=== PATIENT | female | born 1975 | race Caucasian/White ===

== ENCOUNTER 2017-11-02 13:32 | Emergency (ER) | payer SELFPAY ==
[~2017-11-02] VITALS: Ht 154.9 cm; Wt 42.0 kg
[2017-11-02] MEDS ORDERED: ZIPRASIDONE 20 MG INJ IM ONE ×2 (13:46→14:00)
[2017-11-02 13:58] LABS: BASOPHILS # (AUTO) 0.01 x10^3/uL (0-0.1); BASOPHILS % (AUTO) 0 % (0-1); EOSINOPHILS # (AUTO) 0.05 x10^3/uL (0-0.4); EOSINOPHILS % (AUTO) 0 % (1-7); LYMPHOCYTES # (AUTO) 1.21 x10^3/uL (1-3.4); LYMPHOCYTES % (AUTO) 8 % (22-44); MD NO; MEAN CORPUSCULAR HEMOGLOBIN 30.8 pg (27.0-34.8); MEAN CORPUSCULAR HGB CONC 33.9 g/dL (32.4-35.8); MEAN CORPUSCULAR VOLUME 90.9 fL (80-100); MEAN PLATELET VOLUME 6.4 fL (7.4-10.4); MONOCYTES % (AUTO) 6 % (2-9); NEUTROPHILS # (AUTO) 13.17 x10^3/uL (1.8-6.8); NEUTROPHILS % (AUTO) 86 % (42-75); PLATELET COUNT 517 x10^3/uL (130-400); RED BLOOD COUNT 4.37 x10^6/uL (3.82-5.3)
[2017-11-02] MEDS ORDERED: PLEASE ENTER HEIGHT AND WEIGHT MC SCH (14:00)
[2017-11-02] MEDS ORDERED: CEFTRIAXONE 1,000 MG IM ONE (14:00)
[2017-11-02] MEDS ORDERED: CEFTRIAXONE 1,000 MG ONE (14:44)
[2017-11-02 19:06] VITALS: BP 99/70
[2017-11-02] MEDS ORDERED: BACITRACIN ZINC OINT 500U/GM, 0.9 GM ONE (19:42)
== END 2017-11-02 20:23 | disposition home or self-care (01) ==
LOC: ED 19:36
DX: L03.115 Cellulitis of right lower limb (principal); F15.129 Other stimulant abuse with intoxication, unspecified; F17.210 Nicotine dependence, cigarettes, uncomplicated; Z72.9 Problem related to lifestyle, unspecified; Z60.9 Problem related to social environment, unspecified
CPT/HCPCS: 36415; 73590; 82962; 85025; 96372; 99285; J0696; J3486

== ENCOUNTER 2019-01-31 17:10 | Emergency (ER) | payer SELFPAY ==
[~2019-01-31] VITALS: Ht 157.5 cm; Wt 45.5 kg
[2019-01-31 17:14] VITALS: BP 152/110
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
--- NOTE | 2019-01-31 18:34 | NUR ---
LATE ENTRY FOR 1800 PT RESTING ON GURNEY. PT HAS BEEN GIVEN WATER. PT REFUSES BLANKET. PT STILL AGITATED AND NOT VERY COMPLIANT. PT STATES "JUST TAKE ME TO [facility]." PT EDUCATED REGARDING POC AT THIS TIME. ALL SAFETY MEASURES OBTAINED. NO OTHER REQUESTS AT THIS TIME. PT REFUSING VITAL SIGNS. PT PULSE OX WAS FOUND ON FLOOR. WILL CONTINUE TO MONITOR.
[2019-01-31 18:35] LABS: BASOPHILS # (AUTO) 0.04 x10^3/uL (0-0.1); BASOPHILS % (AUTO) 0 % (0-1); EOSINOPHILS # (AUTO) 0.02 x10^3/uL (0-0.4); EOSINOPHILS % (AUTO) 0 % (1-7); LYMPHOCYTES # (AUTO) 0.64 x10^3/uL (1-3.4); LYMPHOCYTES % (AUTO) 4 % (22-44); MD NO; MEAN CORPUSCULAR HEMOGLOBIN 31.8 pg (27.0-34.8); MEAN CORPUSCULAR HGB CONC 33.3 g/dL (32.4-35.8); MEAN CORPUSCULAR VOLUME 95.5 fL (80-100); MEAN PLATELET VOLUME 6.9 fL (7.4-10.4); MONOCYTES # (AUTO) 0.72 x10^3/uL (0.2-0.8); MONOCYTES % (AUTO) 4 % (2-9); NEUTROPHILS # (AUTO) 15.93 x10^3/uL (1.8-6.8); NEUTROPHILS % (AUTO) 92 % (42-75); PLATELET COUNT 536 x10^3/uL (130-400); RED CELL DISTRIBUTION WIDTH 14.9 % (9.6-15.2)
--- NOTE | 2019-01-31 18:37 | NUR ---
PT STILL REFUSES VS. PT RESTING ON GURNEY. PT STATES "DO YOU EVEN KNOW WHAT YOU ARE DOING!? JEEZ!!" NO ACUTE DISTRESS NOTED. ALL SAFETY MEASURES OBTAINED. PT OFFERED DIET TRAY, PT REFUSED.
[2019-01-31 18:48] LABS: ALANINE AMINOTRANSFERASE 22 U/L (12-78); ALBUMIN 4.1 g/dL (3.4-5.0); ANION GAP 13 mmol/L (5-15); CALCIUM 10.4 mg/dL (8.5-10.1); CHLORIDE 105 mmol/L (98-107); CREATININE 1.61 mg/dL (0.55-1.02)
[2019-01-31 18:50] LABS: ALKALINE PHOSPHATASE 125 U/L (45-117); BILIRUBIN,TOTAL 0.8 mg/dL (0.2-1.0); TOTAL PROTEIN 9.4 g/dL (6.4-8.2)
--- NOTE | 2019-01-31 18:59 | NUR ---
BEDSIDE REPORT TO AMANUEL TRIVEDI.
--- NOTE | 2019-01-31 19:01 | NUR ---
Assumed care for patient. Report taken from AMANUEL Argueta.
[2019-01-31] MEDS ORDERED: CEFTRIAXONE 1,000 MG ONE (19:57)
[2019-01-31] MEDS ORDERED: CEFTRIAXONE 1,000 MG IM ONE (20:00)
--- NOTE | 2019-01-31 20:36 | NUR ---
IM Rocephin administered. Restraints released at 2024 by security. Pt calm and cooperative.
--- NOTE | 2019-01-31 20:55 | NUR ---
PT signed paperwork and educated on aftercare wound care instructions. Pt given cab voucher.
== END 2019-01-31 20:59 | disposition home or self-care (01) ==
LOC: ED 20:35
DX: L03.115 Cellulitis of right lower limb (principal); F15.20 Other stimulant dependence, uncomplicated; F17.200 Nicotine dependence, unspecified, uncomplicated
CPT/HCPCS: 36415; 73610; 80053; 80307; 83605; 85025; 87040; 96372; 99284; J0696

== ENCOUNTER 2019-09-24 10:50 | Inpatient (IN) | payer MEDICARE ==
[~2019-09-24] VITALS: Ht 154.9 cm; Wt 38.7 kg
[~2019-09-24 10:50] MED LIST: CEFO2PIG IV; ENOX40SY4 SQ; HYDR-3237 PO; LORA-446 PO; MULT1TAB60 PO; NICO-486 TD; SENN-193 PO
--- NOTE | 2019-09-24 11:54 | NUR ---
SPLINT TO R LEG/FOOT REMOVED. ERP IN TO ASSESS LEG. PT STATES SEVERAL TIMES SHE MISSED FOLLOW UP APPOINTMENT WITH [facility] BUT UNABLE TO GIVE EXACT DATES. PT CONTINUES TO CONVERSE BUT UNABLE TO ANSWER MOST QUESTIONS FULLY AND ADMITS TO BEING CONFUSED. PT R/O NO RECENT DRUG OR METH USE BUT SEEN AT [facility] YESTERDAY FOR METH USE. DISCHARGE PAPERWORK WITH PT FROM [facility].
--- NOTE | 2019-09-24 12:03 | NUR ---
PT TO CT
--- NOTE | 2019-09-24 12:21 | NUR ---
PT BACK FROM CT, LAB IN TO DRAW.
[2019-09-24 12:25] LABS: BASOPHILS # (AUTO) 0.03 x10^3/uL (0-0.1); BASOPHILS % (AUTO) 0 % (0-1); EOSINOPHILS # (AUTO) 0.13 x10^3/uL (0-0.4); EOSINOPHILS % (AUTO) 2 % (1-7); LYMPHOCYTES # (AUTO) 1.34 x10^3/uL (1-3.4); LYMPHOCYTES % (AUTO) 16 % (22-44); MD NO; MEAN CORPUSCULAR HEMOGLOBIN 29.5 pg (27.0-34.8); MEAN CORPUSCULAR HGB CONC 32.5 g/dL (32.4-35.8); MEAN PLATELET VOLUME 6.7 fL (7.4-10.4); MONOCYTES # (AUTO) 0.43 x10^3/uL (0.2-0.8); MONOCYTES % (AUTO) 5 % (2-9); NEUTROPHILS # (AUTO) 6.72 x10^3/uL (1.8-6.8); NEUTROPHILS % (AUTO) 78 % (42-75); PLATELET COUNT 452 x10^3/uL (130-400); RED BLOOD COUNT 4.74 x10^6/uL (3.82-5.3); RED CELL DISTRIBUTION WIDTH 15.8 % (9.6-15.2)
[2019-09-24 12:33] LABS: ALANINE AMINOTRANSFERASE 46 U/L (12-78); ALBUMIN 3.3 g/dL (3.4-5.0); ANION GAP 13 mmol/L (5-15); CALCIUM 8.7 mg/dL (8.5-10.1); CHLORIDE 108 mmol/L (98-107); CREATININE 0.68 mg/dL (0.55-1.02)
[2019-09-24 12:40] LABS: ALKALINE PHOSPHATASE 188 U/L (45-117); BILIRUBIN,TOTAL 0.7 mg/dL (0.2-1.0); TOTAL PROTEIN 7.6 g/dL (6.4-8.2)
--- NOTE | 2019-09-24 12:43 | NUR ---
XR AT BS.
[2019-09-24] MEDS ORDERED: MORPHINE SULFATE 4 MG/ML, 1ML ONE (12:49)
[2019-09-24] MEDS ORDERED: LORazepam 2 MG/ML, 1ML ONE (12:50)
[2019-09-24] MEDS ORDERED: IBUPROFEN 600 MG TABLET PO PRN (13:00)
[2019-09-24] MEDS ORDERED: ACETAMINOPHEN 325 MG TABLET PO PRN (13:00)
[2019-09-24] MEDS ORDERED: ONDANSETRON ODT 4 MG PO PRN (13:00)
[2019-09-24] MEDS ORDERED: ONDANSETRON 2MG/ML, 2ML IVPush PRN (13:00)
[2019-09-24] MEDS ORDERED: BACLOFEN 10 MG TABLET PO PRN (13:00)
[2019-09-24] MEDS: LORazepam 2 MG/ML, 1ML IVPush PRN (13:20)
[2019-09-24] MEDS: morphine SULFATE 10 MG/ML, 1ML IVPush PRN ×2 (13:20→22:31)
--- NOTE | 2019-09-24 13:21 | NUR ---
IV PLACED, LABS DRAWN WITH START/SENT TO LAB. PT MEDICATED FOR ANXIETY AND "BAD" PAIN TO L LEG. PULSE OX AND BP CUFF IN PLACE. CALL LIGHT WITHIN REACH. WARM BLANKET PROVIDED.
[2019-09-24 13:28] LABS: HCT (SEDRATE) 43.3 % (34.6-47.8)
[2019-09-24] MEDS ORDERED: POTASSIUM CHLORIDE 10% 40 MEQ/30 ML UDC PO ONE (14:00)
[2019-09-24] MEDS ORDERED: CEFTRIAXONE PMX 1GM/50ML 50 ML IV SCH (14:00)
[2019-09-24] MEDS ORDERED: VANCOMYCIN PER PHARMACY MC PRN (14:00)
[2019-09-24] MEDS ORDERED: CEFTRIAXONE PMX 1GM/50ML 50 ML ONE (14:24)
[2019-09-24] MEDS ORDERED: ENOXAPARIN 40 MG/0.4 ML ONE (14:24)
[2019-09-24] MEDS ORDERED: POTASSIUM CHLORIDE 20 MEQ PACKET ONE (14:24)
--- NOTE | 2019-09-24 14:35 | NUR ---
PT MEDICATED PER ADMIT ORDER. PT SLEEPING, FLACC 0. ON AWAKENING, PT REQUESTING MORE MEDICATION-PT INFORMED OF MED SCHEDULE/MD ORDERS.
[2019-09-24] MEDS: ENOXAPARIN 40 MG/0.4 ML SQ SCH (14:38)
--- NOTE | 2019-09-24 14:42 | NUR ---
PT TO MRI
--- NOTE | 2019-09-24 14:58 | NUR ---
REPORT TO JOSE MARIA VITAL, TRANSFER OF CARE AT THIS TIME.
[2019-09-24] MEDS ORDERED: GADOTERATE 7.5 MMOL/15 ML SYR ONE (15:31)
[2019-09-24] MEDS: D5%-0.45NACL+KCL 20MEQ 1,000 ML IV SCH (17:00)
[2019-09-24] MEDS ORDERED: PHARMACOKINETIC MONITORING MC PRN (22:30)
[2019-09-24 22:40] VITALS: BP 115/83
[2019-09-24] MEDS ORDERED: POTASSIUM CHLORIDE 20 MEQ PACKET PO ONE (23:00)
[2019-09-24] MEDS ORDERED: PLEASE ENTER WEIGHT MC SCH (23:00)
[2019-09-24] MEDS ORDERED: VANCOMYCIN 700 MG in SODIUM CHLORIDE 0.9% 100 ML IV SCH (23:00)
[2019-09-24] MEDS: HYDROcodone/APAP 5/325 TABLET PO PRN (23:54)
[2019-09-25 01:27] VITALS: BP 105/59
[2019-09-25] MEDS: morphine SULFATE 10 MG/ML, 1ML IVPush PRN ×4 (01:46→20:51)
[2019-09-25 03:19] LABS: MICROSCOPIC INDICATED
[2019-09-25 03:27] LABS: CULTURE INDICATED? YES
[2019-09-25 03:43] LABS: CLOSTRIDIUM DIFFICILE ANTIGEN NEGATIVE; CLOSTRIDIUM DIFFICILE TOXIN NEGATIVE (Negative)
[2019-09-25] MEDS: HYDROcodone/APAP 5/325 TABLET PO PRN (04:15)
[2019-09-25 04:31] LABS: AMPHETAMINE SCREEN, URINE Positive (Negative); BARBITURATE SCREEN, URINE Negative (Negative); BENZODIAZEPINE SCREEN, URINE Negative (Negative); CANNABINOID SCREEN, URINE Negative (Negative); COCAINE SCREEN, URINE Negative (Negative); METHADONE SCREEN, URINE Negative (Negative); OPIATE SCREEN, URINE Positive (Negative)
[2019-09-25 05:17] LABS: BASOPHILS # (AUTO) 0.03 x10^3/uL (0-0.1); BASOPHILS % (AUTO) 0 % (0-1); EOSINOPHILS # (AUTO) 0.43 x10^3/uL (0-0.4); EOSINOPHILS % (AUTO) 5 % (1-7); LYMPHOCYTES # (AUTO) 1.93 x10^3/uL (1-3.4); LYMPHOCYTES % (AUTO) 21 % (22-44); MD NO; MEAN CORPUSCULAR HEMOGLOBIN 29.4 pg (27.0-34.8); MEAN CORPUSCULAR HGB CONC 32.9 g/dL (32.4-35.8); MEAN CORPUSCULAR VOLUME 89.4 fL (80-100); MEAN PLATELET VOLUME 6.7 fL (7.4-10.4); MONOCYTES # (AUTO) 0.65 x10^3/uL (0.2-0.8); MONOCYTES % (AUTO) 7 % (2-9); NEUTROPHILS # (AUTO) 6.02 x10^3/uL (1.8-6.8); NEUTROPHILS % (AUTO) 67 % (42-75); PLATELET COUNT 430 x10^3/uL (130-400); RED BLOOD COUNT 4.36 x10^6/uL (3.82-5.3); RED CELL DISTRIBUTION WIDTH 15.7 % (9.6-15.2)
[2019-09-25 05:31] LABS: ANION GAP 5 mmol/L (5-15); CALCIUM 8.5 mg/dL (8.5-10.1); CHLORIDE 111 mmol/L (98-107); CREATININE 0.79 mg/dL (0.55-1.02)
[2019-09-25] MEDS: D5%-0.45NACL+KCL 20MEQ 1,000 ML IV SCH ×2 (05:34→16:54)
[2019-09-25 07:35] VITALS: BP 106/67
[2019-09-25 14:01] VITALS: BP 109/71
[2019-09-25] MEDS: ENOXAPARIN 40 MG/0.4 ML SQ SCH (14:30)
[2019-09-25] MEDS: LORazepam 2 MG/ML, 1ML IVPush PRN (16:47)
[2019-09-25 20:38] VITALS: BP 106/64
[2019-09-25] MEDS: LIDODERM 5% PATCH TD SCH (20:52)
[2019-09-25] MEDS ORDERED: DIPHENOXYLATE/ATROPINE TABLET PO PRN (23:30)
[2019-09-26 02:02] VITALS: BP 120/78
[2019-09-26] MEDS: morphine SULFATE 10 MG/ML, 1ML IVPush PRN ×3 (02:04→13:24)
[2019-09-26] MEDS: D5%-0.45NACL+KCL 20MEQ 1,000 ML IV SCH ×2 (04:43→14:59)
[2019-09-26 05:55] LABS: HCT (SEDRATE) 39.6 % (34.6-47.8)
[2019-09-26 07:27] VITALS: BP 120/80
[2019-09-26] MEDS: LORazepam 2 MG/ML, 1ML IVPush PRN (12:40)
[2019-09-26] MEDS ORDERED: MORPHINE SULFATE 4 MG/ML, 1ML IVPush ONE (14:30)
[2019-09-26] MEDS: ENOXAPARIN 40 MG/0.4 ML SQ SCH (14:30)
[2019-09-26 15:27] VITALS: BP 134/89
[2019-09-26] MEDS: HYDROcodone/APAP 5/325 TABLET PO PRN (20:55)
[2019-09-26] MEDS: LORazepam 1MG TABLET PO PRN (23:21)
[2019-09-26] MEDS: LIDODERM 5% PATCH TD SCH (23:36)
[2019-09-27 02:00] VITALS: BP 113/86
[2019-09-27] MEDS: HYDROcodone/APAP 5/325 TABLET PO PRN ×3 (04:44→13:00)
[2019-09-27] MEDS: D5%-0.45NACL+KCL 20MEQ 1,000 ML IV SCH (05:51)
[2019-09-27] MEDS: LORazepam 1MG TABLET PO PRN ×2 (07:25→13:52)
[2019-09-27 08:38] VITALS: BP 100/84
[2019-09-27] MEDS: ENOXAPARIN 40 MG/0.4 ML SQ SCH (14:30)
== END 2019-09-27 16:21 | disposition home or self-care (01) | DRG 91 ==
LOC: ED 12:25 → EDIP 12:35 → 3N 22:00
PROVIDERS: ADMIT Hospitalist; ATTEND Internal Medicine
DX: G92 Toxic encephalopathy (principal); E43 Unspecified severe protein-calorie malnutrition; M86.661 Other chronic osteomyelitis, right tibia and fibula; F13.20 Sedative, hypnotic or anxiolytic dependence, uncomplicated; Z68.1 Body mass index [BMI] 19.9 or less, adult; F15.10 Other stimulant abuse, uncomplicated; E87.6 Hypokalemia; F41.9 Anxiety disorder, unspecified; Z72.0 Tobacco use; Z80.3 Family history of malignant neoplasm of breast; Z83.3 Family history of diabetes mellitus; Z71.6 Tobacco abuse counseling
CPT/HCPCS: 36415; 70450; 71045; 72158; 80048; 80053; 80307; 81001; 83735; 84443; 85025; 85651; 86140; 87070; 87077; 87086; 87186; 87205; 87324; 93922; 96374; 96375; 99285; G0378; J0696; J1650; J2405; J3370; A9575; J2060; J2270; J3480